=== PATIENT | female | born 1975 | race Caucasian/White ===

== ENCOUNTER → 2016-11-28 | Day surgery (SDC) | payer OTHER ==
[~2016-11-28] VITALS: Ht 160 cm; Wt 87.1 kg
[~2016-11-28] MED LIST: ALBU17IN INH; AMPICILLIN SOD/SULBACTAM SOD 3 GM in D5W MINI-BAG PLUS 100 ML IV ONE; BUPIVACAINE HCL 0.25% 30 ML VIAL As Ordered ONE; BUPIVACAINE HCL 0.25% 30 ML VIAL XX ONE; CELE40TA PO; CYMB60CA3 PO; DRIS50002 PO; FOLI1TAB2 PO; GLYCOPYRROLATE INJ 0.2 MG/ML 2 ML VIAL As Ordered ONE; KETOROLAC 30 MG/ML VIAL (J1885) As Ordered ONE; KETOROLAC 30 MG/ML VIAL (J1885) IV SCH; KETOROLAC 60 MG/2 ML VIAL (J1885) As Ordered ONE; LIDOCAINE 1% SDV INJ 30 ML VIAL As Ordered ONE; LIDOCAINE 1% SDV INJ 30 ML VIAL XX ONE; LIDOCAINE 2% INJ 100 MG/5 ML SDV (FOR ANES.) As Ordered ONE; LR 1,000 ML IV SCH; METOCLOPRAMIDE INJ 10MG/2ML VIAL (J2765) IV PRN; MIDAZOLAM INJ 2 MG/2 ML VIAL (J2250) As Ordered ONE; MULTTAB35 PO; NEOSTIGMINE 1MG/ML 5 ML SYRINGE (J2710) As Ordered ONE; NORC5TAB PO; NORCO, ANEXSIA 5/325MG TABLET (HYDROcodone/ACETAMINOPHEN) PO PRN; OMEP40CA2 PO; ONDANSETRON 4MG/2ML VIAL (J2405) As Ordered ONE; ONDANSETRON 4MG/2ML VIAL (J2405) IV PRN; PERCOCET 5MG/325MG TAB PO PRN; PREV30CA11 PO; PROPOFOL 200 MG/20 ML VIAL As Ordered ONE; PROZ20CA11 PO; ROCURONIUM BROMIDE 50 MG/5 ML VIAL As Ordered ONE; TRAZ50TA4 PO; VITA100T60 PO; ZYRT10CA PO; dexameTHASONE 4 MG/ML 1ML VIAL (J1100) As Ordered ONE; fentaNYL 100 MCG/2 ML INJECTION (J3010) IV PRN; fentaNYL 250 MCG/5 ML INJECTION (J3010) As Ordered ONE
[2016-11-28 06:41] LABS: CONTROL LINE UCG INT CTR LINE PRESENT
[2016-11-28 11:30] VITALS: BP 138/86
--- NOTE | 2016-11-28 11:38 | RO ---
DATE OF PROCEDURE: 11/28/2016 PREOPERATIVE DIAGNOSIS: Symptomatic cholelithiasis. POSTOPERATIVE DIAGNOSES: 1. Symptomatic cholelithiasis. 2. Chronic cholecystitis. PROCEDURE: Laparoscopic cholecystectomy. SURGEON: Dr. Briceño MANAGER INTERNSHIP: Dr. Hillman ANESTHESIA: General anesthesia. ESTIMATED BLOOD LOSS: Less than 25 mL. COMPLICATIONS: None. REMARKS: The patient tolerated the procedure well. NOTE: Dr. Hillman helped with retraction and identification of the cystic duct and artery to help facilitate the surgery. Ms. Serna is a 41-year-old female who was sent to my office with complaints of intermittent epigastric and right upper quadrant pain and was found to have evidence for cholelithiasis, as well as thickened gallbladder wall consistent with biliary colic type symptoms from the stones. She was consulted for a laparoscopic cholecystectomy and after discussion of full risks and benefits, the patient has consented. She received 3 grams of Unasyn preoperatively for prophylaxis. She was brought to the operating room, placed on table. General endotracheal anesthesia was started without any complication. Her abdomen was prepped and draped in the usual sterile fashion. SCDs used for deep vein thrombosis (DVT) prophylaxis. Surgical time-out was performed. We began our surgery. We made an incision on the top of the umbilicus and deepened to the anterior fascia. Veress needle inserted in a controlled fashion. Intra-abdominal placement confirmed with saline drop technique. CO2 insufflation started a pressure of 15 mmHg. Using the same incision, an 11 mm Visiport was placed under direct laparoscopic vision. The insertion site was inspected for injury and none was noted. She was then placed in a reverse Trendelenburg position. Her right side tilted up to further expose the gallbladder. With our position on top of the umbilicus, the liver is situated way up underneath the subcostal area. The fundus of the gallbladder was visualized. This was greatly distended, mildly thickened wall, though no acute inflammation. A good amount of adhesions from the omentum and the hepatoduodenal ligament covers most of the underside of the gallbladder. Three 5 mm ports were placed at the epigastric area, right midclavicular line, and right anterior axillary line under direct vision. The fundus of the gallbladder was grasped. We walked down the grasper to the midbody to be able to raise the gallbladder, which was greatly enlarged and distended. As we were doing this, we dissected free the underside of gallbladder from the chronic attachments of the omentum and the hepatoduodenal ligament, freeing this up and exposing further the gallbladder. We also opened up the peritoneum at the midbody, both anteriorly and posteriorly to enable us to manipulate the gallbladder further. We continued dissecting the gallbladder free until we reached the infundibulum and it sweeps upwards back towards the liver with blunt dissection using Maryland instrument. The cystic duct was identified and this was circumferentially dissected with blunt dissection. The cystic artery is intimately adhered to the posterior side of the duct. This was dissected free circumferentially and followed up antegradely to the neck of the gallbladder where we divided this under control of four hemoclips. We were then able to continue dissecting the gallbladder posteriorly and freeing up the anterior wall away from the liver fully exposing the tract of the cystic duct from the neck of the gallbladder to about 5 to 6 centimeters. The cystic duct itself appears mildly enlarged. Palpating at the neck reveals small stones. No be big stones noted and no stones were palpated at the duct. I initially placed three clips at the cystic duct and two at the gallbladder due to the size of the cystic duct and placed a fourth clip after partially dividing the duct to make sure we had secure closure of the cystic duct stump. After this, the full duct was divided and we worked on freeing the rest of the gallbladder from the liver bed, which we removed intact. There is a small amount of spillage from the tip of the cystic duct. There was only minimal oozing at some points of the liver bed, easily controlled with the cautery. It was placed in an EndoCatch bag and easily retrieved through the umbilical port site. On reinsufflation, the small amount of blood was suctioned and bile leakage was so suctioned off. We irrigated until we had a clear return. We visualized the clips on both the duct and the artery and was satisfied with the placement. There was no clear oozing at the liver bed. With this, we deflated the abdomen. All ports were removed. The umbilical fascial defect repaired with #0 Vicryl in a mattress fashion. All skin incisions closed with #4-0 Monocryl in subcuticular fashion. Steri-Strips and gauze dressings then placed. The patient was promptly awakened, extubated, brought to recovery room stable.
== END ==
LOC: M SDC 05:59
PROVIDERS: ATTEND Surgery
DX: K80.10 Calculus of gallbladder with chronic cholecystitis without obstruction (principal); J45.909 Unspecified asthma, uncomplicated; F32.9 Major depressive disorder, single episode, unspecified; F41.9 Anxiety disorder, unspecified; E66.9 Obesity, unspecified; Z87.891 Personal history of nicotine dependence; Z79.899 Other long term (current) drug therapy

== ENCOUNTER → 2017-02-06 | Outpatient (CLI) | payer OTHER ==
[~2017-02-06] MED LIST changes: -AMPICILLIN SOD/SULBACTAM SOD 3 GM in D5W MINI-BAG PLUS 100 ML IV ONE; -BUPIVACAINE HCL 0.25% 30 ML VIAL As Ordered ONE; -BUPIVACAINE HCL 0.25% 30 ML VIAL XX ONE; -GLYCOPYRROLATE INJ 0.2 MG/ML 2 ML VIAL As Ordered ONE; -KETOROLAC 30 MG/ML VIAL (J1885) As Ordered ONE; -KETOROLAC 30 MG/ML VIAL (J1885) IV SCH; -KETOROLAC 60 MG/2 ML VIAL (J1885) As Ordered ONE; -LIDOCAINE 1% SDV INJ 30 ML VIAL As Ordered ONE; -LIDOCAINE 1% SDV INJ 30 ML VIAL XX ONE; -LIDOCAINE 2% INJ 100 MG/5 ML SDV (FOR ANES.) As Ordered ONE; -LR 1,000 ML IV SCH; -METOCLOPRAMIDE INJ 10MG/2ML VIAL (J2765) IV PRN; -MIDAZOLAM INJ 2 MG/2 ML VIAL (J2250) As Ordered ONE; -NEOSTIGMINE 1MG/ML 5 ML SYRINGE (J2710) As Ordered ONE; -NORCO, ANEXSIA 5/325MG TABLET (HYDROcodone/ACETAMINOPHEN) PO PRN; -ONDANSETRON 4MG/2ML VIAL (J2405) As Ordered ONE; -ONDANSETRON 4MG/2ML VIAL (J2405) IV PRN; -PERCOCET 5MG/325MG TAB PO PRN; -PROPOFOL 200 MG/20 ML VIAL As Ordered ONE; -ROCURONIUM BROMIDE 50 MG/5 ML VIAL As Ordered ONE; -dexameTHASONE 4 MG/ML 1ML VIAL (J1100) As Ordered ONE; -fentaNYL 100 MCG/2 ML INJECTION (J3010) IV PRN; -fentaNYL 250 MCG/5 ML INJECTION (J3010) As Ordered ONE
--- NOTE | 2017-02-06 15:44 | REP ---
Distal lesion abdominal right upper quadrant ultrasound: Comparison is 2015. The patient has had an interim cholecystectomy. There is no identifiable gallbladder compatible with the history of cholecystectomy. There are two cysts in the left lobe of the liver. Today the larger cyst maximally measures 2.2 cm and the smaller cyst 0.9 cm. Previously the larger cyst measured 2.1 cm. Smaller cyst 1.8 cm. The hepatic parenchyma is otherwise homogeneous and unremarkable. There is no biliary duct dilation. The common duct is 3.9 mm in diameter. The pancreas is obscured by bowel. There is no right renal hydronephrosis, calculus, mass or cyst. The right kidney is normal size measuring 11.6 cm length. Impression: Gallbladder surgically absent. There are two small cysts in the left lobe of the liver, similar to the prior study. Pancreas is obscured by bowel. Otherwise, negative abdominal right upper quadrant ultrasound. Signed by Noble Falcon MD 02/06/2017 03:35 P
== END ==
LOC: M LRY 14:34
PROVIDERS: ATTEND Family Medicine
DX: R10.13 Epigastric pain (principal)

== ENCOUNTER → 2017-02-06 | Outpatient (REF) | payer OTHER ==
[2017-02-06 17:56] LABS: ALBUMIN 3.8 GM/DL (3.2-5.2); ALBUMIN/GLOBULIN RATIO 1.27 (1.00-1.93); ALKALINE PHOSPHATASE 70 U/L (45-117); ALT/SGPT 18 U/L (12-78); AMYLASE 42 U/L (25-115); ANION GAP 9 MEQ/L (8-16); AST/SGOT 14 U/L (15-37); BLOOD UREA NITROGEN 12 MG/DL (7-18); CALCIUM LEVEL 8.9 MG/DL (8.5-10.1); CARBON DIOXIDE LEVEL 27 MEQ/L (21-32); CHLORIDE LEVEL 107 MEQ/L (98-107); GLOMERULAR FILTRATION RATE > 60.0 (>58); GLUCOSE, FASTING 91 MG/DL (70-105); POTASSIUM SERUM 4.5 MEQ/L (3.5-5.1); SODIUM LEVEL 143 MEQ/L (136-145); TOTAL PROTEIN 6.8 GM/DL (6.4-8.2)
[2017-02-06 18:30] LABS: MEAN CORPUSCULAR HEMOGLOBIN 24.9 pg (27.0-33.0); MEAN CORPUSCULAR HGB CONC 31.8 g/dl (32.0-36.5); MEAN CORPUSCULAR VOLUME 78.2 fl (80.0-96.0); RED CELL DISTRIBUTION WIDTH 15.6 % (11.5-14.5); WHITE BLOOD COUNT 12.9 K/mm3 (4.0-10.0)
== END ==
LOC: M SFHCLERA 14:31
PROVIDERS: ATTEND Family Medicine
DX: R10.13 Epigastric pain (principal)

== ENCOUNTER → 2017-02-07 | Outpatient (REF) | payer OTHER | LOC: M SFHCLERA 16:28 | PROVIDERS: ATTEND Family Medicine | DX: R10.13 Epigastric pain (principal) ==

== ENCOUNTER → 2017-03-22 | Outpatient (REF) | payer OTHER ==
[~2017-03-22] MED LIST changes: +NORC1TAB4 PO; -NORC5TAB PO
== END ==
LOC: M SFHCWAGY 13:40
PROVIDERS: ATTEND Nurse Practitioner Women's Health
DX: R87.612 Low grade squamous intraepithelial lesion on cytologic smear of cervix (LGSIL) (principal)

== ENCOUNTER → 2017-03-22 | Outpatient (CLI) | payer OTHER ==
--- NOTE | 2017-03-22 14:25 | REPMRS ---
Patient History The patient states she had a clinical breast exam in 03/12 Family history of breast cancer in paternal grandmother at age 50 or over and colorectal cancer in maternal grandmother. Benign excisional biopsy of the left breast, 2003. Taking hormonal contraceptives for 7 months. Digital Woman Screen Mammo: March 22, 2017 - Exam #: [id number] Bilateral CC and MLO view(s) were taken. Technologist: Ana Pratt, Technologist Prior study comparison: August 27, 2015, digital woman screen mammo performed at [facility] [facility]. December 23, 2013, digital woman screen mammo performed at [facility]. FINDINGS: There are scattered fibroglandular densities. There has been no change in the appearance of the mammogram from the prior studies. There is a mild amount of residual fibroglandular tissue which is fairly symmetric. There is no interval development of dominant mass, architectural distortion, or clustered microcalcification suggestive of malignancy. ASSESSMENT: BI-RADS/ACR category 1 mammogram. Negative. Recommendation Routine screening mammogram in 1 year (for women over age 40). This mammogram was interpreted with the aid of an FDA-approved computer-aided dectection system. Electronically Signed By: Noble Cummins MD 03/22/17 0656
== END ==
LOC: M WHC 13:25
PROVIDERS: ATTEND Nurse Practitioner Women's Health
DX: Z12.31 Encounter for screening mammogram for malignant neoplasm of breast (principal); Z80.3 Family history of malignant neoplasm of breast

== ENCOUNTER → 2017-04-09 | Outpatient (REF) | payer OTHER | LOC: M SFHCWAGY 14:49 | PROVIDERS: ATTEND Nurse Practitioner Women's Health | DX: R87.612 Low grade squamous intraepithelial lesion on cytologic smear of cervix (LGSIL) (principal); R87.810 Cervical high risk human papillomavirus (HPV) DNA test positive ==

== ENCOUNTER → 2017-06-22 | Outpatient (REF) | payer OTHER ==
[~2017-06-22] MED LIST changes: -FOLI1TAB2 PO; +FOLI1TAB4 PO; +PREV1CAP PO; -PREV30CA11 PO; +TRAZ50TA11 PO; -TRAZ50TA4 PO
== END ==
LOC: M SFHCLERA 18:10
PROVIDERS: ATTEND Nurse Practitioner Family
DX: R35.0 Frequency of micturition (principal)

== ENCOUNTER → 2017-09-03 | Outpatient (REF) | payer BC | LOC: M SFHCLERA 11:59 | PROVIDERS: ATTEND Nurse Practitioner Family | DX: J02.9 Acute pharyngitis, unspecified (principal) ==

== ENCOUNTER → 2017-09-18 | Outpatient (CLI) | payer BC ==
--- NOTE | 2017-09-19 13:32 | REP ---
Pelvic ultrasound including transabdominal and endovaginal ultrasound assessment: According to the technologist, during the scanning of the pelvis of the patients pain is located over the bladder in the midline. The uterus is anteverted and normal size measuring 9.0 x 4.8-5.8 cm. The endometrium is not thickened measuring 5.6 cm. The ovaries are normal size. The right ovary measures 5.1 x 2.4 x 2.7 cm. Left ovary measures 3.9 x 2.2 x 2.0 cm. There is a 2 cm simple cyst in the right ovary. There is no dominant mass or cyst in the left ovary. The the patient has an IUD. The IUD can be seen centrally placed within the endometrial canal. There is no free fluid in the pelvis. Impression: There is a 2 cm simple cyst in the right ovary. There are is an IUD centrally placed in the endometrial canal. No free fluid. Otherwise, negative pelvic ultrasound.
== END ==
LOC: M WHC 12:48
PROVIDERS: ATTEND Nurse Practitioner Women's Health
DX: R10.2 Pelvic and perineal pain (principal); Z30.431 Encounter for routine checking of intrauterine contraceptive device; N83.201 Unspecified ovarian cyst, right side

== ENCOUNTER → 2018-02-14 | Outpatient (CLI) | payer BC | LOC: M WHC 10:40 | DX: D25.9 Leiomyoma of uterus, unspecified (principal) | CPT/HCPCS: 76830 ==

== ENCOUNTER → 2018-03-26 | Outpatient (CLI) | payer BC | LOC: M WHC 13:28 | DX: Z12.31 Encounter for screening mammogram for malignant neoplasm of breast (principal) | CPT/HCPCS: 77067 ==

== ENCOUNTER → 2018-03-26 | Outpatient (REF) | payer BC ==
[2018-03-29 00:07] LABS: HPV HYBRID CAPTURE II Positive (Negative)
== END ==
LOC: M SFHCWAGY 13:35
DX: Z12.4 Encounter for screening for malignant neoplasm of cervix (principal)
CPT/HCPCS: G0123

== ENCOUNTER → 2018-04-08 | Outpatient (REF) | payer BC | LOC: M SFHCWAGY 15:28 | DX: R87.810 Cervical high risk human papillomavirus (HPV) DNA test positive (principal); R87.610 Atypical squamous cells of undetermined significance on cytologic smear of cervix (ASC-US) ==

== ENCOUNTER → 2018-08-29 | Outpatient (REF) | payer OTHER ==
[2018-08-29 12:10] LABS: ANION GAP 8 MEQ/L (8-16); BLOOD UREA NITROGEN 12 MG/DL (7-18); CALCIUM LEVEL 9.5 MG/DL (8.5-10.1); CARBON DIOXIDE LEVEL 26 MEQ/L (21-32); CHLORIDE LEVEL 105 MEQ/L (98-107); CHOLESTEROL LEVEL 219 MG/DL (<200); CHOLESTEROL RISK RATIO 3.318 (<5); CREATININE FOR GFR 0.69 MG/DL (0.55-1.30); GLOMERULAR FILTRATION RATE > 60.0 (>58); GLUCOSE, FASTING 98 MG/DL (70-100); HDL CHOLESTEROL 66 MG/DL (>40); LDL CHOLESTEROL 138 MG/DL (<100); NON-HDL-C 153 MG/DL; POTASSIUM SERUM 4.2 MEQ/L (3.5-5.1); SODIUM LEVEL 139 MEQ/L (136-145); TRIGLYCERIDES LEVEL 73 MG/DL (<150)
== END ==
LOC: M SFHCLERA 08:34
DX: R73.03 Prediabetes (principal)
CPT/HCPCS: 80061

== ENCOUNTER 2018-09-09 13:42 | Emergency (ER) | payer OTHER | END 2018-09-09 17:22 | disposition home or self-care (01) | LOC: M ED 13:42 | DX: H66.93 Otitis media, unspecified, bilateral (principal); J45.909 Unspecified asthma, uncomplicated; K21.9 Gastro-esophageal reflux disease without esophagitis; F33.9 Major depressive disorder, recurrent, unspecified; F41.9 Anxiety disorder, unspecified; Z79.899 Other long term (current) drug therapy | CPT/HCPCS: 99283 ==

== ENCOUNTER → 2018-11-07 | Outpatient (REF) | payer OTHER | LOC: M SFHCLERA 15:40 | DX: J02.9 Acute pharyngitis, unspecified (principal) ==

== ENCOUNTER → 2018-11-29 | Outpatient (REF) | payer OTHER ==
[~2018-11-29] MED LIST changes: +AUGM875T28 PO; -DRIS50002 PO; +DRIS50003 PO; +FOLI1TAB11 PO; -FOLI1TAB4 PO; +TRAZ-160 PO; -TRAZ50TA11 PO
== END ==
LOC: M SFHCLERA 09:29
PROVIDERS: ATTEND Nurse Practitioner Family
DX: R19.7 Diarrhea, unspecified (principal)

== ENCOUNTER → 2019-01-28 | Outpatient (CLI) | payer OTHER ==
--- NOTE | 2019-01-28 09:22 | REP ---
MAXILLOFACIAL CT STUDY WITHOUT CONTRAST: HISTORY: Chronic maxillary sinusitis. No comparison imaging. CT FINDINGS: Preliminary digital nurse midwife/clinical instructor radiographs are unremarkable. Frontal sinuses are clear. Ethmoid and sphenoid sinuses are clear. There are mild mucosal changes in the inferior aspect of the maxillary sinuses right more so than left. Ostiomeatal complexes are patent. There is a Tito cell on the left. Bony nasal septum is in the midline. Nasal turbinate soft tissues are unremarkable. No intraorbital abnormality is seen. The visualized intracranial structures are unremarkable. IMPRESSION: Minimal mucosal changes in the maxillary sinuses bilaterally, right more so than left. Otherwise negative. Electronically Signed by Brooks Ward MD 01/28/2019 11:08 A
== END ==
LOC: M RAD 08:00
PROVIDERS: ATTEND Otolaryngology
DX: J32.0 Chronic maxillary sinusitis (principal)

== ENCOUNTER → 2019-02-06 | Outpatient (REF) | payer OTHER ==
[2019-02-06 13:01] LABS: BASO % 0.4 % (0.0-1.0); EOS # 0.1 10^3/uL (0.0-0.50); EOS % 1.8 % (0.0-3.0); HEMATOCRIT 40.6 % (36.0-47.0); HEMOGLOBIN 13.3 g/dl (12.0-15.5); LYMPH # 1.4 10^3/uL (1.5-4.5); LYMPH % 20.8 % (24.0-44.0); MEAN CORPUSCULAR HEMOGLOBIN 27.1 pg (27.0-33.0); MEAN CORPUSCULAR HGB CONC 32.8 g/dl (32.0-36.5); MEAN CORPUSCULAR VOLUME 82.7 fl (80.0-96.0); MONO # 1.1 10^3/uL (0.0-0.8); MONO % 15.9 % (0.0-5.0); NEUTROPHILS # 4.1 10^3/uL (1.8-7.7); PLATELET COUNT, AUTOMATED 319 10^3/uL (150-450); RED BLOOD COUNT 4.91 10^6/uL (4.00-5.40); WHITE BLOOD COUNT 6.7 10^3/uL (4.0-10.0)
[2019-02-06 13:13] LABS: FREE T4 1.18 NG/DL (0.76-1.46); THYROID STIMULATING HORMONE 1.48 uIU/ML (0.358-3.740)
== END ==
LOC: M SFHCLERA 09:04
PROVIDERS: ATTEND Family Medicine
DX: R00.2 Palpitations (principal)

== ENCOUNTER → 2019-02-25 | Outpatient (CLI) | payer OTHER ==
--- NOTE | 2019-02-25 21:27 | ECHO ---
DATE OF PROCEDURE: 02/25/2019 REFERRING PHYSICIAN: Dr. Alexia Courtney INDICATION: Palpitations. HEIGHT: 160 cm WEIGHT: 85.3 kg 2D MEASUREMENTS: Aortic root: 4.0 cm Left atrium: 3.7 cm Ventricular septum: 1.08 cm Posterior wall: 0.79 cm Left ventricle diastole: 4.4 cm Proximal ascending aorta: 3.8 cm Aortic annulus: 2.3 cm Left atrial volume index: 30 Inferior vena cava: 2.4 cm DOPPLER MEASUREMENTS: Aortic valve velocity: 102 cm/s Very mild mitral regurgitation, within normal limits. Mitral E velocity: 85.9 cm/s Mitral A velocity: 95.6 cm/s Mitral deceleration time: 232 ms Mild tricuspid regurgitation. Estimated right ventricle systolic pressure: 26-31 mmHg assuming a pressure of 5-10 mmHg. Very mild pulmonic regurgitation. Pulmonary artery systolic pressure: 22 mmHg. MITRAL ANNULAR TISSUE DOPPLER: E prime septal: 7.4 cm/s E prime lateral: 8.6 cm/s DESCRIPTION: Rhythm was sinus rhythm and sinus bradycardia. No pericardial effusion. Image quality was adequate. This was a 2D, M-mode, color flow Doppler and pulse wave Doppler examination and included mitral annular tissue Doppler. CONCLUSIONS: 1. Normal left ventricle internal dimensions and wall thickness. Normal regional left ventricular (LV) wall motion and wall thickening. Normal LV systolic function. Left ventricular ejection fraction (LVEF) 60% by visual estimate. Grade 1 LV diastolic dysfunction. 2. Mild dilatation of the aortic root at both the level of the sinuses of Valsalva and proximal ascending aorta. 3. Mild left atrial dilatation by left atrial volume index. 4. Otherwise normal appearing echocardiogram Doppler findings.
== END ==
LOC: M CARPUL 08:21
PROVIDERS: ATTEND Family Medicine
DX: R00.2 Palpitations (principal)

== ENCOUNTER → 2019-05-01 | Outpatient (REF) | payer OTHER ==
[~2019-05-01] MED LIST changes: -NORC1TAB4 PO; +NORC1TAB7 PO; -TRAZ-160 PO; +TRAZ-252 PO
== END ==
LOC: M LAB REF 13:42
PROVIDERS: ATTEND Obstetrics & Gynecology
DX: N92.1 Excessive and frequent menstruation with irregular cycle (principal)

== ENCOUNTER 2019-06-16 05:54 | Day surgery (SDC) | payer OTHER ==
[~2019-06-16] VITALS: Ht 160 cm; Wt 80.7 kg
[~2019-06-16 05:54] MED LIST changes: +ALL10TAB28 PO; +IBUP-1114 PO; +OMEP-218 PO; +PROAAER10 INH
[2019-06-16] MEDS ORDERED: LR 1,000 ML IV ONE (06:00)
[2019-06-16 06:36] LABS: HEMATOCRIT 39.6 % (36.0-47.0); MEAN CORPUSCULAR HEMOGLOBIN 28.3 pg (27.0-33.0); MEAN CORPUSCULAR HGB CONC 32.8 g/dl (32.0-36.5); MEAN CORPUSCULAR VOLUME 86.1 fl (80.0-96.0); PLATELET COUNT, AUTOMATED 340 10^3/uL (150-450); WHITE BLOOD COUNT 9.4 10^3/uL (4.0-10.0)
[2019-06-16 06:42] LABS: URINE PREG TEST NEGATIVE (NEGATIVE)
[2019-06-16] MEDS ORDERED: METHYLENE BLUE 0.5% (5MG/ML) 10 ML AMP (PROVAYBLUE)(Q9968 PER 1MG) As Ordered ONE ×2 (07:10→07:11)
[2019-06-16] MEDS ORDERED: BUPIVACAINE HCL 0.25% 30 ML VIAL As Ordered ONE (07:10)
[2019-06-16] MEDS ORDERED: dexameTHASONE 4 MG/ML 1ML VIAL (J1100) As Ordered ONE (07:52)
[2019-06-16] MEDS ORDERED: PROPOFOL 200 MG/20 ML VIAL As Ordered ONE (07:52)
[2019-06-16] MEDS ORDERED: MIDAZOLAM INJ 2 MG/2 ML VIAL (J2250) As Ordered ONE (07:52)
[2019-06-16] MEDS ORDERED: HYDROmorphone HCL 2 MG/ML 1ML VIAL (J1170) As Ordered ONE (07:52)
[2019-06-16] MEDS ORDERED: fentaNYL 100 MCG/2 ML INJECTION (J3010) As Ordered ONE ×2 (07:52→10:44)
[2019-06-16] MEDS ORDERED: ROCURONIUM BROMIDE 50 MG/5 ML VIAL As Ordered ONE ×2 (07:52→08:08)
[2019-06-16] MEDS ORDERED: LIDOCAINE 2% INJ 100 MG/5 ML SDV (FOR ANES.) As Ordered ONE (07:52)
[2019-06-16] MEDS ORDERED: DESFLURANE 240 ML INHALANT As Ordered ONE (07:52)
[2019-06-16] MEDS ORDERED: ONDANSETRON 4MG/2ML VIAL (J2405) As Ordered ONE (09:21)
[2019-06-16] MEDS ORDERED: SUGAMMADEX SODIUM 500 MG/5 ML VIAL (BRIDION) As Ordered ONE (09:21)
[2019-06-16] MEDS ORDERED: KETOROLAC 60 MG/2 ML VIAL (J1885) As Ordered ONE (09:21)
[2019-06-16] MEDS: fentaNYL 100 MCG/2 ML INJECTION (J3010) IV PRN ×3 (10:46→10:59)
[2019-06-16] MEDS ORDERED: LR 1,000 ML IV SCH ×2 (11:00→11:15)
[2019-06-16] MEDS ORDERED: oxyCODONE 5MG TAB PO PRN (11:00)
[2019-06-16] MEDS ORDERED: PROMETHAZINE INJ 25 MG/ML VIAL (J2550) IV PRN ×2 (11:00→11:15)
[2019-06-16] MEDS ORDERED: METOCLOPRAMIDE INJ 10MG/2ML VIAL (J2765) IV PRN (11:00)
[2019-06-16] MEDS ORDERED: OXYC1TAB23 PO (11:09)
[2019-06-16] MEDS ORDERED: PERCOCET 5MG/325MG TAB PO PRN ×2 (11:15)
[2019-06-16] MEDS ORDERED: MORPHINE 4 MG/ML 1ML VIAL/SYRINGE (J2270) IV PRN (11:15)
[2019-06-16 12:36] VITALS: BP 93/51
[2019-06-16 13:03] VITALS: BP 103/58
[2019-06-16 14:08] VITALS: BP 104/59
[2019-06-16 15:05] VITALS: BP 109/57
[2019-06-16] MEDS ORDERED: KETOROLAC 30 MG/ML VIAL (J1885) IV SCH (16:00)
[2019-06-16 16:17] VITALS: BP 106/65
[2019-06-16 17:00] VITALS: BP 93/52
--- NOTE | 2019-06-17 13:21 | RO ---
DATE OF OPERATION: 06/17/2019 PREOPERATIVE DIAGNOSES: 1. Abnormal uterine bleeding. 2. Fibroid uterus. POSTOPERATIVE DIAGNOSES: 1. Abnormal uterine bleeding. 2. Fibroid uterus. PROCEDURES PERFORMED: 1. robotic-assisted laparoscopic hysterectomy. 2. Bilateral salpingectomy. 3. Right oophorectomy. 4. Cystoscopy. SURGEON: Vicki Gomez MD HEAT AND FROST INSULATOR HELPER: FIGUEROA Lyles ANESTHESIA: General endotracheal anesthesia. ESTIMATED BLOOD LOSS: 250 mL. IV FLUIDS: 1500 of Lactated Ringer's solution. URINE OUTPUT: 300 mL. PREOPERATIVE ANTIBIOTICS: 2 grams of Ancef. INFECTION CLASSIFICATION: 2 SPECIMENS: Cervix, uterus, bilateral fallopian tubes and right ovary. OPERATIVE FINDINGS: Patient with a large fibroid uterus, right adnexa adhered to uterine fibroid. Cystoscopic findings revealed normal bladder mucosa, bilateral ureteral jets were observed. No foreign bodies or objects observed. DESCRIPTION OF OPERATION: After informed consent was obtained and written consent was reviewed, the patient was brought to the operating room where she was placed under general endotracheal anesthesia. She was then placed in lithotomy position, was prepped and draped in a normal sterile fashion. A time out in the operating room was performed identifying the patient, procedure be performed as well as drug allergies. A speculum was placed revealing the cervix, anterior and posterior aspects of the cervix was stitched with #0 Vicryl. A medium VCare uterine manipulator was then advanced through cervical os, insufflated with 7 mL of air, the cervical cap as well as vaginal sleeve was advanced down into the vagina. Instruments were then removed from the patient's vagina. Root catheter was placed and set to gravity. Gloves were changed and attention was turned to the patient's abdomen where a Veress needle was placed in the umbilicus, a pneumoperitoneum was obtained with CO2 gas. Next, the supraumbilical area was infused with 0.25% Marcaine. This area was incised, an 8 mm trocar and sleeve was advanced through this incision. The laparoscope was then replaced revealing intra-abdominal placement. Four additional port sites were placed, two to each side of the umbilicus. Each one of these areas was infused with 0.25% Marcaine. Incisions were made in each one of these, and 8 mm trocar and sleeves was advanced through each one of these incisions under direct visualization. Next, the da Angelita was then docked, utilizing the camera arm and three operative arms. Next attention was turned to the patient's right adnexa. I attempted to dissect the right ovary from the right fibroid. There was excessive amounts of bleeding coming from the right infundibulopelvic ligament at which time I made a decision to proceed with right oophorectomy for hemostasis. The right infundibulopelvic ligamentwas cauterized and ligated with excellent hemostasis noted at that point. The left uterine ovarian ligament was cauterized using the Vessel Sealer with good hemostasis noted. The round ligaments bilaterally were cauterized and ligated with good hemostasis noted. The anterior lip of the broad ligaments were dissected along the bladder creating a bladder flap. The remainder of the broad and cardinal ligaments were then cauterized and ligated with good hemostasis noted. The uterine vessels were skeletonized bilaterally and cauterized and ligated. Next, utilizing monopolar scissors anterior and posterior colpotomies were made. The uterus was then detached. The da Angelita was then undocked. I then proceeded with morcellation of the uterus, in which case it was removed vaginally. The da Angelita was re-docked and surgical sites were inspected and noted be hemostatic. The vaginal cuff was then closed using #0 V-Loc system in a running nonlocking fashion. Surgical sites irrigated. Emma was applied over the surgical field. Da Angelita was then undocked, Root catheter was removed. A cystoscopy was performed. Cystoscope was advanced transurethrally through the bladder. Cystoscope was performed showing normal bladder mucosa with no foreign objects. Bilateral ureteral jets were observed. The cystoscope was then removed. The bladder was drained. Attention was then turned to the patient's abdomen. All five port sites were closed with #4-0 Monocryl and dressed with DERMABOND. The patient was then taken out of lithotomy position and was taken to recovery in stable condition. Anca Chou, my cardiovascular surgical tech, played an essential role during the surgery. She assisted with port placement, manipulation of the uterus, as well as removal of the specimen and port closure. [place]
== END 2019-06-16 19:05 | disposition home or self-care (01) ==
LOC: M SDC 05:54 → M OBS 12:18 → M SDC 19:05
PROVIDERS: ATTEND Obstetrics & Gynecology
DX: N92.6 Irregular menstruation, unspecified (principal); D25.9 Leiomyoma of uterus, unspecified; K21.9 Gastro-esophageal reflux disease without esophagitis; F41.9 Anxiety disorder, unspecified; F32.9 Major depressive disorder, single episode, unspecified
CPT/HCPCS: 36415; 58571; 84703; 85027; 86850; 86900; 86901; 88307; J0690; J1100; J1170; J1885; J2250; J2405; J2765; J3010; Q9968

== ENCOUNTER → 2020-07-20 | Outpatient (CLI) | payer OTHER ==
[~2020-07-20] MED LIST changes: -ALL10TAB28 PO; +CETI-24 PO; -OMEP40CA2 PO; +OMEP40CA97 PO; +OXYC1TAB23 PO
--- NOTE | 2020-07-22 07:46 | REPMRS ---
Patient History The patient states she had a clinical breast exam in June 2020. Family history of breast cancer at age 50 or over in paternal grandmother, colorectal cancer in maternal grandmother. Benign excisional biopsy of the left breast, 2004. Took hormonal contraceptives for 1 year 7 months. Digital Woman Screen Mammo: July 20, 2020 - Exam #: [id number] Bilateral CC and MLO view(s) were taken. Technologist: Charu Genao, Technologist Prior study comparison: March 26, 2018, digital woman screen mammo performed at [facility]. March 22, 2017, digital woman screen mammo performed at [facility]. August 27, 2015, digital woman screen mammo performed at [facility]. FINDINGS: There are scattered fibroglandular densities. The Volpara volumetric breast density category is:B. There is a 6 mm neodensity in the lateral retroareolar regoin of the right breast, seen only on the CC view. This merits further evaluation. There has been no change in the appearance of the mammogram from the prior studies. There is a mild amount of scattered fibroglandular density which is fairly symmetric. There is no interval development of dominant mass, architectural distortion, or grouped microcalcification suggestive of malignancy. 3-D tomosynthesis shows no additional findings. Assessment: BI-RADS/ACR category 0 mammogram, Incomplete: Need additional imaging evaluation and/or prior mammograms for comparison. Recommendation Ultrasound and special view mammogram of the right breast. This patient's Lifetime Breast Cancer Risk is estimated at 13.4 %. This mammogram was interpreted with the aid of an FDA-approved computer-aided dectection system. Electronically Signed By: Yuri Ward MD 07/22/20 0745
== END ==
LOC: M WHC 14:46
PROVIDERS: ATTEND Nurse Practitioner Women's Health
DX: Z12.31 Encounter for screening mammogram for malignant neoplasm of breast (principal)

== ENCOUNTER → 2020-07-30 | Outpatient (CLI) | payer OTHER ==
--- NOTE | 2020-08-25 10:03 | REP ---
DIAGNOSTIC MAMMOGRAM RIGHT BREAST Multiple spot compression views of the right breast are performed in addition to right ML tomographic sequence, in order to evaluate a possible anterior nodular density in the right breast on the 07/20/2020 screening mammogram. This was 6 mm in diameter near the nipple and slightly laterally located. The nodular density compresses out to an unchanged appearance compared to other prior studies, including 03/26/2018 and other prior exams. No persistent nodule is seen. The findings are benign. IMPRESSION: ACR 1 negative. No persistent nodule on todays spot compression views of the right breast. The previously noted 6 mm nodular density anteriorly and laterally as seen on the right CC view is not seen on todays exam and was artifactual. Recommend follow-up mammogram in one year. Patient letter 1. MTDD
== END ==
LOC: M WHC 09:46
PROVIDERS: ATTEND Nurse Practitioner Women's Health
DX: R92.2 Inconclusive mammogram (principal)
CPT/HCPCS: 77065; G0279

== ENCOUNTER → 2020-12-30 | Outpatient (CLI) | payer OTHER ==
[2020-12-30 13:15] LABS: BASO # 0.1 10^3/uL (0.0-0.2); BASO % 0.7 % (0.0-1.0); EOS # 0.1 10^3/uL (0.0-0.5); EOS % 1.6 % (0.0-3.0); HEMOGLOBIN 14.5 g/dl (12.0-15.5); LYMPH # 2.2 10^3/uL (1.5-5.0); LYMPH % 25.4 % (24.0-44.0); MEAN CORPUSCULAR HEMOGLOBIN 29.8 pg (27.0-33.0); MEAN CORPUSCULAR VOLUME 90.3 fl (80.0-96.0); MONO # 0.9 10^3/uL (0.0-0.8); MONO % 10.8 % (0.0-5.0); NEUTROPHILS # 5.2 10^3/uL (1.5-8.5); NEUTROPHILS % 61.1 % (36.0-66.0); PLATELET COUNT, AUTOMATED 322 10^3/uL (150-450); RED BLOOD COUNT 4.87 10^6/uL (4.00-5.40); WHITE BLOOD COUNT 8.5 10^3/uL (4.0-10.0)
[2020-12-30 13:25] LABS: ALT/SGPT 25 U/L (12-78); BILIRUBIN,TOTAL 0.5 MG/DL (0.2-1.0); BLOOD UREA NITROGEN 15 MG/DL (7-18); C REACTIVE PROTEIN QUANTITATIV 0.48 MG/DL (0.00-0.30); CALCIUM LEVEL 10.3 MG/DL (8.5-10.1); CARBON DIOXIDE LEVEL 25 MEQ/L (21-32); CHLORIDE LEVEL 107 MEQ/L (98-107); GLOMERULAR FILTRATION RATE > 60.0 (>58); GLUCOSE, FASTING 101 MG/DL (70-100); POTASSIUM SERUM 4.4 MEQ/L (3.5-5.1); SODIUM LEVEL 139 MEQ/L (136-145); TOTAL PROTEIN 6.9 GM/DL (6.4-8.2)
== END ==
LOC: M WUC 09:30
PROVIDERS: ATTEND Family Medicine
DX: R10.9 Unspecified abdominal pain (principal)

== ENCOUNTER → 2021-01-21 | Outpatient (CLI) | payer OTHER ==
--- NOTE | 2021-01-24 12:32 | ECHO ---
DATE OF PROCEDURE: 01/21/2021 Age: 45 Gender: Female REFERRING PHYSICIAN: Alexia Courtney MD PATIENT LOCATION: Outpatient. REASON FOR STUDY: Aortic root dilatation. 2D MEASUREMENTS: IVS 1.0 cm LV 4.5 cm LVPW 1.0 cm LA 3.7 cm Aorta 4.0 cm DOPPLER MEASUREMENT Peak velocity across the aortic valve 1.1 m/s Peak velocity across the LVOT 0.6 m/s Mitral E 0.85 Mitral A 0.98 with a ratio of 0.9 Maximum tricuspid valve velocity 2.2 m/s 2D COMMENTS: 1. Normal left ventricular size, wall thickness, and normal global left ventricular systolic function. The estimated left ventricular systolic ejection fraction is 60% to 65%. 2. Normal left atrium. Normal right atrium and right ventricle. 3. The atrial septum appeared to be normal without evidence of defect or shunt. 4. Mildly dilated aortic root at 4.0 cm. 5. The aortic valve, mitral valve, tricuspid valve, and pulmonic valve appeared to be normal. The proximal pulmonary artery branches were not well visualized. 6. The inferior vena cava was not well visualized. Doppler detects trace mitral regurgitation and trace tricuspid regurgitation. The calculated pulmonary artery systolic pressure was normal. Abnormal relaxation pattern was noted across the mitral valve leaflets, as well as the mitral valve annulus consistent with features of grade 1 left ventricular diastolic dysfunction. IMPRESSION: 1. Normal global left ventricular systolic function. There are some features of grade 1 left ventricular diastolic dysfunction manifested by abnormal relaxation. 2. Trace mitral regurgitation. 3. Trace tricuspid regurgitation with a normal calculated pulmonary artery systolic pressure. 4. Mildly dilated aortic root at 4.0 cm. No remarkable changes in the size of the aortic root when compared to the echocardiogram done on 02/25/2019. [place]
== END ==
LOC: M CARPUL 09:09
PROVIDERS: ATTEND Family Medicine
DX: I77.810 Thoracic aortic ectasia (principal)

== ENCOUNTER → 2021-02-11 | Outpatient (CLI) | payer OTHER ==
[2021-02-11 13:15] LABS: ALBUMIN 3.9 GM/DL (3.2-5.2)
[2021-02-11 13:29] LABS: TOTAL 25(OH) VITAMIN D 32.1 NG/ML (30.0-100.0)
== END ==
LOC: M WUC 10:09
PROVIDERS: ATTEND Family Medicine
DX: E83.52 Hypercalcemia (principal)

== ENCOUNTER → 2021-11-09 | Outpatient (CLI) | payer OTHER ==
[~2021-11-09] MED LIST changes: -CYMB60CA3 PO; +CYMB60CA4 PO; +OMEP40CA4 PO; -OMEP40CA97 PO
--- NOTE | 2021-11-09 15:30 | REPMRS ---
Patient History The patient states she had a clinical breast exam in October 2021. Family history of breast cancer at age 50 or over in paternal grandmother, colorectal cancer in maternal grandmother. Benign excisional biopsy of the left breast, 2003. Took hormonal contraceptives for 1 year 7 months. Covid vaccines 3-6 months ago both in the patients left arm. Patient states no breast complaints today. Patient has signed MRS History Sheet. Digital Woman Screen Mammo: November 09, 2021 - Exam #: [id number] Bilateral CC and MLO view(s) were taken. Technologist: RT Jennifer Prior study comparison: July 30, 2020, right breast diagnostic unilateral mammo performed at [facility]. July 20, 2020, bilateral digital woman screen mammo performed at [facility]. FINDINGS: There are scattered fibroglandular densities. Screening. Digital screening (2D) mammography was performed bilaterally in the CC and MLO projections. Additionally, breast tomosynthesis (3D mammography) was performed bilaterally in the CC and MLO projections. Todays exam was compared to the prior exam/exams. By history, the patient has no complaints of a palpable breast abnormality or other significant breast complaints. The breasts are unchanged in size and shape. There are no yanick-soft tissue densities or spiculated masses. There is no internal architectural distortion. There are no suspicious yanick-calcific clusters. Skin thickening or nipple retraction is not present. IMPRESSION: BI-RADS Category 2- Benign Findings. There is no evidence of malignant alteration of the breasts. Followup examination recommended in one year. The Volpara volumetric breast density category is B, there are scattered areas of fibroglandular densities. This mammogram was read with the assistance of [facility] [employer],an FDA approved computer aided detection system for mammography. The lifetime Tyrer-Cuzick score is 13.1 % Negative x-ray reports should not delay surgical consultation if a dominant or clinically suspicious mass is present. Not all breast cancers can be identified by mammography. Therefore, we recommend that you continue to perform regular breast self-examination and physical examination and then promptly contact your physician of any concerns or changes. Adenosis and dense breasts may obscure an underlying neoplasm. Assessment: BI-RADS/ACR category 2 mammogram. Benign Findings. Recommendation Routine screening mammogram of both breasts in 1 year. Electronically Signed By: Chris Nair DO 11/09/21 9514
== END ==
LOC: M WHC 13:31
PROVIDERS: ATTEND Obstetrics & Gynecology
DX: Z12.31 Encounter for screening mammogram for malignant neoplasm of breast (principal)

== ENCOUNTER → 2021-12-08 | Outpatient (CLI) | payer OTHER ==
[2021-12-08 16:13] LABS: BASO % 0.6 % (0.0-1.0); EOS # 0.1 10^3/uL (0.0-0.5); EOS % 1.5 % (0.0-3.0); HEMATOCRIT 43.3 % (36.0-47.0); HEMOGLOBIN 14.3 g/dl (12.0-15.5); LYMPH # 1.4 10^3/uL (1.5-5.0); LYMPH % 21.1 % (24.0-44.0); MEAN CORPUSCULAR HEMOGLOBIN 29.7 pg (27.0-33.0); MEAN CORPUSCULAR VOLUME 89.8 fl (80.0-96.0); MONO # 1.4 10^3/uL (0.0-0.8); MONO % 20.6 % (2.0-8.0); NEUTROPHILS # 3.7 10^3/uL (1.5-8.5); NEUTROPHILS % 55.9 % (36.0-66.0); PLATELET COUNT, AUTOMATED 304 10^3/uL (150-450); RED BLOOD COUNT 4.82 10^6/uL (4.00-5.40); WHITE BLOOD COUNT 6.6 10^3/uL (4.0-10.0)
[2021-12-08 16:28] LABS: ALBUMIN 4.1 GM/DL (3.2-5.2); ALT/SGPT 24 U/L (12-78); BILIRUBIN,TOTAL 0.8 MG/DL (0.2-1.0); BLOOD UREA NITROGEN 15 MG/DL (7-18); CARBON DIOXIDE LEVEL 26 MEQ/L (21-32); CHLORIDE LEVEL 106 MEQ/L (98-107); CHOLESTEROL LEVEL 204 MG/DL (<200); CHOLESTEROL RISK RATIO 2.794 (<5); CREATININE FOR GFR 0.62 MG/DL (0.55-1.30); GLOMERULAR FILTRATION RATE > 60.0 (>58); GLUCOSE, FASTING 86 MG/DL (70-100); HDL CHOLESTEROL 73 MG/DL (>40); LDL CHOLESTEROL 121 MG/DL (<100); NON-HDL-C 131 MG/DL; POTASSIUM SERUM 4.2 MEQ/L (3.5-5.1); SODIUM LEVEL 139 MEQ/L (136-145); TOTAL PROTEIN 7.1 GM/DL (6.4-8.2); TRIGLYCERIDES LEVEL 51 MG/DL (<150)
[2021-12-08 16:29] LABS: HEMOGLOBIN A1c 5.3 %
== END ==
LOC: M WUC 12:03
PROVIDERS: ATTEND Student in an Organized Health Care Education/Training Program
DX: Z13.1 Encounter for screening for diabetes mellitus (principal); I10 Essential (primary) hypertension; Z00.00 Encounter for general adult medical examination without abnormal findings

== ENCOUNTER → 2022-01-09 | Outpatient (CLI) | payer OTHER ==
[~2022-01-09] MED LIST changes: +OMEP-173 PO; -OMEP-218 PO
== END ==
LOC: M WHC 12:18
PROVIDERS: ATTEND Advanced Practice Midwife
DX: R10.32 Left lower quadrant pain (principal); N83.202 Unspecified ovarian cyst, left side

== ENCOUNTER → 2022-02-06 | Outpatient (CLI) | payer OTHER | LOC: M PLALAB 07:27 | PROVIDERS: ATTEND Advanced Practice Midwife | DX: N83.202 Unspecified ovarian cyst, left side (principal) ==

== ENCOUNTER → 2022-03-14 | Outpatient (CLI) | payer OTHER | LOC: M WHC 10:02 | PROVIDERS: ATTEND Advanced Practice Midwife | DX: N83.202 Unspecified ovarian cyst, left side (principal) ==

== ENCOUNTER → 2022-03-28 | Outpatient (CLI) | payer OTHER ==
[~2022-03-28] MED LIST changes: +GASTROGRAFIN SOLUTION 30ML (Q9963) As Ordered ONE; +ISOVUE-370 76% 100ML VIAL As Ordered ONE
[2022-03-28 16:30] LABS: BASO # 0.1 10^3/uL (0.0-0.2); BASO % 0.7 % (0.0-1.0); EOS # 0.1 10^3/uL (0.0-0.5); EOS % 1.6 % (0.0-3.0); HEMATOCRIT 43.9 % (36.0-47.0); HEMOGLOBIN 14.7 g/dl (12.0-15.5); LYMPH # 2.5 10^3/uL (1.5-5.0); LYMPH % 33.9 % (24.0-44.0); MEAN CORPUSCULAR HEMOGLOBIN 30.4 pg (27.0-33.0); MEAN CORPUSCULAR HGB CONC 33.5 g/dl (32.0-36.5); MEAN CORPUSCULAR VOLUME 90.9 fl (80.0-96.0); MONO # 0.9 10^3/uL (0.0-0.8); MONO % 11.6 % (2.0-8.0); NEUTROPHILS # 3.9 10^3/uL (1.5-8.5); NEUTROPHILS % 51.9 % (36.0-66.0); PLATELET COUNT, AUTOMATED 313 10^3/uL (150-450); RED BLOOD COUNT 4.83 10^6/uL (4.00-5.40); WHITE BLOOD COUNT 7.5 10^3/uL (4.0-10.0)
[2022-03-28 17:09] LABS: ALBUMIN 4.2 GM/DL (3.2-5.2); ALT/SGPT 21 U/L (12-78); BILIRUBIN,TOTAL 1.1 MG/DL (0.2-1.0); BLOOD UREA NITROGEN 16 MG/DL (7-18); CARBON DIOXIDE LEVEL 27 MEQ/L (21-32); CHLORIDE LEVEL 108 MEQ/L (98-107); CREATININE FOR GFR 0.82 MG/DL (0.55-1.30); GLOMERULAR FILTRATION RATE > 60.0 (>58); GLUCOSE, FASTING 83 MG/DL (70-100); POTASSIUM SERUM 4.5 MEQ/L (3.5-5.1); SODIUM LEVEL 139 MEQ/L (136-145); TOTAL PROTEIN 7.1 GM/DL (6.4-8.2)
== END ==
LOC: M RAD 15:30
PROVIDERS: ATTEND Student in an Organized Health Care Education/Training Program
DX: R10.32 Left lower quadrant pain (principal)
CPT/HCPCS: 36415; 74177; 80053; 85025; 86140; Q9963; Q9967

== ENCOUNTER → 2022-05-11 | Outpatient (CLI) | payer OTHER ==
[~2022-05-11] MED LIST changes: -GASTROGRAFIN SOLUTION 30ML (Q9963) As Ordered ONE; -ISOVUE-370 76% 100ML VIAL As Ordered ONE
== END ==
LOC: M LABSMTC 10:37
PROVIDERS: ATTEND Anesthesiology
DX: Z01.818 Encounter for other preprocedural examination (principal); Z11.52 Encounter for screening for COVID-19

== ENCOUNTER 2022-05-16 09:44 | Day surgery (SDC) | payer OTHER ==
[~2022-05-16] VITALS: Ht 160 cm; Wt 81.6 kg
[~2022-05-16 09:44] MED LIST changes: +NS 1,000 ML IV ONE
[2022-05-16] MEDS ORDERED: propofoL 200 MG/20 ML VIAL As Ordered ONE ×3 (11:04→11:17)
[2022-05-16 11:50] VITALS: BP 134/88
== END 2022-05-16 12:01 | disposition home or self-care (01) ==
LOC: M OPP 09:44
PROVIDERS: ATTEND Internal Medicine Gastroenterology
DX: Z12.11 Encounter for screening for malignant neoplasm of colon (principal); R10.32 Left lower quadrant pain; K57.30 Diverticulosis of large intestine without perforation or abscess without bleeding; K64.8 Other hemorrhoids; I71.9 Aortic aneurysm of unspecified site, without rupture; K21.9 Gastro-esophageal reflux disease without esophagitis; F41.9 Anxiety disorder, unspecified; F32.A Depression, unspecified; J30.9 Allergic rhinitis, unspecified; Z79.899 Other long term (current) drug therapy; Z81.1 Family history of alcohol abuse and dependence; Z83.6 Family history of other diseases of the respiratory system; Z83.3 Family history of diabetes mellitus; Z82.49 Family history of ischemic heart disease and other diseases of the circulatory system; Z84.1 Family history of disorders of kidney and ureter; Z82.3 Family history of stroke; Z80.3 Family history of malignant neoplasm of breast; Z80.0 Family history of malignant neoplasm of digestive organs

== ENCOUNTER → 2023-01-26 | Outpatient (CLI) | payer OTHER ==
[~2023-01-26] MED LIST changes: -NS 1,000 ML IV ONE
== END ==
LOC: M RAD 09:01
PROVIDERS: ATTEND Otolaryngology
DX: H90.A31 Mixed conductive and sensorineural hearing loss, unilateral, right ear with restricted hearing on the contralateral side (principal)

== ENCOUNTER → 2023-03-29 | Outpatient (CLI) | payer OTHER ==
[~2023-03-29] MED LIST changes: +FLUO40CA PO; +LEVOTAB10 PO; +VENTAER INH
== END ==
LOC: M SOG 08:54
PROVIDERS: ATTEND Physician Assistant
DX: M25.521 Pain in right elbow (principal)

== ENCOUNTER 2023-03-30 00:21 | Emergency (ER) | payer OTHER ==
[~2023-03-30] VITALS: Ht 167.6 cm; Wt 68.2 kg
[~2023-03-30 00:21] MED LIST changes: -FLUO40CA PO; -LEVOTAB10 PO; -VENTAER INH
[2023-03-30 01:03] LABS: HEMATOCRIT 45.3 % (36.0-47.0); HEMOGLOBIN 15.4 g/dl (12.0-15.5); MEAN CORPUSCULAR HEMOGLOBIN 31.6 pg (27.0-33.0); MEAN CORPUSCULAR VOLUME 92.8 fl (80.0-96.0); PLATELET COUNT, AUTOMATED 330 10^3/uL (150-450); RED BLOOD COUNT 4.88 10^6/uL (4.00-5.40); WHITE BLOOD COUNT 12.5 10^3/uL (4.0-10.0)
[2023-03-30 01:22] LABS: AMPHETAMINES LEVEL URINE NEGATIVE (NEGATIVE); BARBITURATES URINE NEGATIVE (NEGATIVE); BENZODIAZEPINES URINE NEGATIVE (NEGATIVE); COCAINE METABOLITE URINE NEGATIVE (NEGATIVE); METHADONE URINE NEGATIVE (NEGATIVE); OPIATES URINE NEGATIVE (NEGATIVE); PHENCYCLIDINE URINE NEGATIVE (NEGATIVE)
[2023-03-30 01:23] LABS: CANNABINOIDS URINE POSITIVE (NEGATIVE)
[2023-03-30 01:25] LABS: ACETAMINOPHEN LEVEL < 2.0 UG/ML (10.0-20.0); ALBUMIN 4.4 G/DL (3.2-5.2); ALKALINE PHOSPHATASE 71 U/L (46-116); ALT/SGPT 32 U/L (7.0-40); AST/SGOT 30 U/L (<34); BILIRUBIN,DIRECT 0.2 MG/DL (<0.4); BILIRUBIN,TOTAL 0.9 MG/DL (0.3-1.2); BLOOD UREA NITROGEN 7 MG/DL (9-23); CALCIUM LEVEL 9.8 MG/DL (8.5-10.1); CARBON DIOXIDE LEVEL 26 MMOL/L (20-31); CHLORIDE LEVEL 107 MMOL/L (98-107); CREATININE FOR GFR 0.62 MG/DL (0.55-1.30); GLOMERULAR FILTRATION RATE > 60.0 (>58); GLUCOSE, FASTING 113 MG/DL (60-100); POTASSIUM SERUM 3.7 MMOL/L (3.5-5.1); SALICYLATE LEVEL < 3.0 MG/DL (<30); SODIUM LEVEL 141 MMOL/L (136-145); TOTAL PROTEIN 7.5 G/DL (5.7-8.2)
[2023-03-30 01:30] LABS: HCG, SERUM QUALITATIVE NEGATIVE (NEGATIVE)
[2023-03-30 01:33] LABS: THYROID STIMULATING HORMONE 1.119 uIU/ML (0.55-4.78)
[2023-03-30] MEDS ORDERED: LEVOTAB10 PO (08:18)
[2023-03-30] MEDS ORDERED: VENTAER INH (08:18)
[2023-03-30] MEDS ORDERED: FLUO40CA PO (08:18)
[2023-03-30] MEDS ORDERED: HOME MED LIST COMPLETE! XX SCH (08:20)
[2023-03-30 12:23] VITALS: BP 135/70
== END 2023-03-30 12:27 | disposition home or self-care (01) ==
LOC: M ED 00:21
DX: F10.129 Alcohol abuse with intoxication, unspecified (principal); Z79.899 Other long term (current) drug therapy; Z79.51 Long term (current) use of inhaled steroids

== ENCOUNTER → 2023-04-13 | Outpatient (CLI) | payer OTHER ==
[~2023-04-13] MED LIST changes: +FLUO40CA PO; +LEVOTAB10 PO; +VENTAER INH
== END ==
LOC: M OUTALCOH 09:48
PROVIDERS: ATTEND Psychiatry & Neurology Psychiatry
DX: F10.10 Alcohol abuse, uncomplicated (principal)

== ENCOUNTER 2023-04-20 15:56 | Outpatient (RCR) | payer OTHER | END 2023-04-25 | LOC: M OUTALCOH 15:56 | PROVIDERS: ATTEND Psychiatry & Neurology Psychiatry | DX: F10.10 Alcohol abuse, uncomplicated (principal) ==

== ENCOUNTER → 2023-05-25 | Outpatient (RCR) | payer OTHER | LOC: M OUTALCOH 04-26 16:00 | PROVIDERS: ATTEND Psychiatry & Neurology Psychiatry | DX: F10.10 Alcohol abuse, uncomplicated (principal) ==

== ENCOUNTER 2023-06-22 14:00 | Outpatient (RCR) | payer OTHER | END 2023-06-25 | LOC: M OUTALCOH 14:00 | PROVIDERS: ATTEND Psychiatry & Neurology Psychiatry | DX: F10.10 Alcohol abuse, uncomplicated (principal) ==

== ENCOUNTER 2023-06-27 14:02 | Outpatient (RCR) | payer OTHER | END 2023-07-26 | LOC: M OUTALCOH 14:02 | PROVIDERS: ATTEND Psychiatry & Neurology Psychiatry | DX: F10.10 Alcohol abuse, uncomplicated (principal) ==

== ENCOUNTER → 2023-09-10 | Outpatient (CLI) | payer OTHER | LOC: M WHC 07:10 | PROVIDERS: ATTEND Obstetrics & Gynecology | DX: Z12.31 Encounter for screening mammogram for malignant neoplasm of breast (principal) ==

== ENCOUNTER → 2023-12-06 | Outpatient (CLI) | payer OTHER ==
[2023-12-06 11:46] LABS: BASO # 0.1 10^3/uL (0.0-0.2); BASO % 0.6 % (0.0-1.0); EOS # 0.1 10^3/uL (0.0-0.5); EOS % 0.9 % (0.0-3.0); HEMATOCRIT 43.1 % (36.0-47.0); HEMOGLOBIN 14.6 g/dl (12.0-15.5); LYMPH % 24.8 % (24.0-44.0); MEAN CORPUSCULAR HGB CONC 33.9 g/dl (32.0-36.5); MEAN CORPUSCULAR VOLUME 91.5 fl (80.0-96.0); MONO # 0.8 10^3/uL (0.0-0.8); MONO % 9.5 % (2.0-8.0); NEUTROPHILS # 5.1 10^3/uL (1.5-8.5); PLATELET COUNT, AUTOMATED 306 10^3/uL (150-450); RED BLOOD COUNT 4.71 10^6/uL (4.00-5.40)
[2023-12-06 12:16] LABS: ALBUMIN 3.9 G/DL (3.2-5.2); ALKALINE PHOSPHATASE 61 U/L (46-116); ALT/SGPT 21 U/L (7.0-40); AST/SGOT 19 U/L (<34); BILIRUBIN,TOTAL 0.8 MG/DL (0.3-1.2); BLOOD UREA NITROGEN 9 MG/DL (9-23); CALCIUM LEVEL 9.9 MG/DL (8.5-10.1); CARBON DIOXIDE LEVEL 26 MMOL/L (20-31); CHLORIDE LEVEL 104 MMOL/L (98-107); CHOLESTEROL LEVEL 194 MG/DL (<200); GLOMERULAR FILTRATION RATE > 60.0 (>58); GLUCOSE, FASTING 74 MG/DL (60-100); HDL CHOLESTEROL 84.3 MG/DL (>40); LDL CHOLESTEROL 99.7 MG/DL (<100); NON-HDL-C 109.7 MG/DL; POTASSIUM SERUM 4.2 MMOL/L (3.5-5.1); SODIUM LEVEL 136 MMOL/L (136-145); TOTAL PROTEIN 6.6 G/DL (5.7-8.2); TRIGLYCERIDES LEVEL 50 MG/DL (<150)
[2023-12-06 12:17] LABS: THYROID STIMULATING HORMONE 0.992 uIU/ML (0.55-4.78)
[2023-12-06 12:18] LABS: FOLATE 19.23 NG/ML (>5.4); TOTAL 25(OH) VITAMIN D 32.3 NG/ML (20.0-100.0)
[2023-12-06 12:19] LABS: VITAMIN B12 LEVEL 967 PG/ML (211-911)
== END ==
LOC: M RAD 09:53
PROVIDERS: ATTEND Physician Assistant
DX: F41.9 Anxiety disorder, unspecified (principal)

== ENCOUNTER → 2024-12-30 | Outpatient (CLI) | payer OTHER | LOC: M WHC 10:22 | PROVIDERS: ATTEND Obstetrics & Gynecology | DX: Z12.31 Encounter for screening mammogram for malignant neoplasm of breast (principal); N63.21 Unspecified lump in the left breast, upper outer quadrant ==

== ENCOUNTER → 2025-01-20 | Outpatient (CLI) | payer OTHER | LOC: M WHC 12:16 | PROVIDERS: ATTEND Obstetrics & Gynecology | DX: Z12.31 Encounter for screening mammogram for malignant neoplasm of breast (principal) ==

== ENCOUNTER → 2025-01-29 | Outpatient (CLI) | payer OTHER ==
[2025-01-29 07:40] VITALS: TEMP 98.2
[2025-01-29 08:33] VITALS: BP 128/86; O2SAT 98
== END ==
LOC: M WHCPRO 07:36
PROVIDERS: ATTEND Obstetrics & Gynecology
DX: R92.8 Other abnormal and inconclusive findings on diagnostic imaging of breast (principal); N63.22 Unspecified lump in the left breast, upper inner quadrant; C50.212 Malignant neoplasm of upper-inner quadrant of left female breast

== ENCOUNTER → 2025-02-20 | Outpatient (CLI) | payer OTHER ==
[~2025-02-20] MED LIST changes: +PROHANCE 279.3MG/ML 15ML VIAL ONE; +PROHANCE 279.3MG/ML 5ML VIAL ONE
== END ==
LOC: M PLAIMG 13:51
PROVIDERS: ATTEND Surgery
DX: C50.212 Malignant neoplasm of upper-inner quadrant of left female breast (principal)

== ENCOUNTER → 2025-03-12 | Outpatient (CLI) | payer OTHER ==
[~2025-03-12] MED LIST changes: +CYCL5TAB4 PO; +FLUO60TA PO; -PROHANCE 279.3MG/ML 15ML VIAL ONE; -PROHANCE 279.3MG/ML 5ML VIAL ONE
[2025-03-12 13:25] LABS: BASO % 0.4 % (0.0-1.0); EOS # 0.1 10^3/uL (0.0-0.5); EOS % 1.9 % (0.0-3.0); HEMATOCRIT 44.5 % (36.0-47.0); LYMPH # 2.1 10^3/uL (1.5-5.0); LYMPH % 28.3 % (24.0-44.0); MEAN CORPUSCULAR HEMOGLOBIN 30.7 pg (27.0-33.0); MEAN CORPUSCULAR HGB CONC 33.7 g/dl (32.0-36.5); MEAN CORPUSCULAR VOLUME 91.2 fl (80.0-96.0); MONO # 0.7 10^3/uL (0.0-0.8); MONO % 8.8 % (2.0-8.0); NEUTROPHILS # 4.5 10^3/uL (1.5-8.5); NEUTROPHILS % 60.5 % (36.0-66.0); PLATELET COUNT, AUTOMATED 277 10^3/uL (150-450); RED BLOOD COUNT 4.88 10^6/uL (4.00-5.40); WHITE BLOOD COUNT 7.4 10^3/uL (4.0-10.0)
[2025-03-12 13:49] LABS: ALBUMIN 4.1 G/DL (3.2-5.2); ALKALINE PHOSPHATASE 68 U/L (35-104); ALT/SGPT 24 U/L (7.0-40); AST/SGOT 22 U/L (<34); BILIRUBIN,TOTAL 1.3 MG/DL (0.3-1.2); BLOOD UREA NITROGEN 13 MG/DL (9-23); CARBON DIOXIDE LEVEL 27 MMOL/L (20-31); CHLORIDE LEVEL 105 MMOL/L (98-107); CREATININE FOR GFR 0.67 MG/DL (0.55-1.30); GLOMERULAR FILTRATION RATE > 90.0 (>51); GLUCOSE, FASTING 104 MG/DL (60-100); POTASSIUM SERUM 3.6 MMOL/L (3.5-5.1); SODIUM LEVEL 137 MMOL/L (136-145); TOTAL PROTEIN 7.4 G/DL (5.7-8.2)
== END ==
LOC: M RAD 12:41
PROVIDERS: ATTEND Family Medicine
DX: R19.7 Diarrhea, unspecified (principal); K57.92 Diverticulitis of intestine, part unspecified, without perforation or abscess without bleeding; R10.30 Lower abdominal pain, unspecified

== ENCOUNTER → 2025-03-12 | Outpatient (REF) | payer OTHER | LOC: M SFHCLERA 12:39 | PROVIDERS: ATTEND Family Medicine | DX: R19.7 Diarrhea, unspecified (principal) ==

== ENCOUNTER 2025-03-26 08:26 | Day surgery (SDC) | payer OTHER ==
[2025-03-25] MEDS: ceFAZolin SOD 2 GM IV ONCE IV ONE (06:00)
[~2025-03-26] VITALS: Ht 160 cm; Wt 81.6 kg
[~2025-03-26 08:26] MED LIST changes: +LIDOCAINE 1% MDV 20ML VIAL As Ordered ONE
[2025-03-26] MEDS ORDERED: GLYCOPYRROLATE INJ 0.2 MG/ML 2 ML VIAL As Ordered ONE (11:27)
[2025-03-26] MEDS ORDERED: LIDOCAINE 2% 100MG/5ML SDV (FOR ANES.) As Ordered ONE (11:27)
[2025-03-26] MEDS ORDERED: propofoL 200 MG/20 ML VIAL As Ordered ONE (11:27)
[2025-03-26] MEDS ORDERED: KETOROLAC 30 MG/ML 1ML VIAL As Ordered ONE (11:28)
[2025-03-26] MEDS ORDERED: ONDANSETRON 4MG 2ML VIAL As Ordered ONE (11:28)
[2025-03-26] MEDS ORDERED: fentaNYL 100 MCG/2 ML INJECTION As Ordered ONE (11:29)
[2025-03-26] MEDS ORDERED: MIDAZOLAM INJ 2MG/2ML VIAL As Ordered ONE (11:29)
[2025-03-26] MEDS: METHYLENE BLUE 0.5% (5MG/ML) 10 ML AMP As Ordered ONE (12:21)
[2025-03-26] MEDS ORDERED: LR 1,000 ML IV SCH (12:25)
[2025-03-26] MEDS: SCOPOLAMINE 1MG TRANSDERMAL PATCH TOP ONE (12:28)
[2025-03-26] MEDS ORDERED: ACETAMINOPHEN 1000MG/100ML IV BAG As Ordered ONE (12:56)
[2025-03-26] MEDS ORDERED: METOCLOPRAMIDE INJ 10MG/2ML VIAL As Ordered ONE (12:58)
[2025-03-26] MEDS ORDERED: ePHEDrine SULFATE 25 MG/5 ML(5MG/ML) SYRINGE As Ordered ONE (13:03)
[2025-03-26] MEDS ORDERED: HYDROmorphone HCL 2MG/ML 1ML VIAL As Ordered ONE (13:33)
[2025-03-26] MEDS ORDERED: MORPHINE 2 MG/ML 1ML VIAL IV PRN (14:30)
[2025-03-26] MEDS ORDERED: oxyCODONE 5MG TAB PO PRN (14:30)
[2025-03-26] MEDS ORDERED: ONDANSETRON 4MG 2ML VIAL IV PRN (14:30)
[2025-03-26] MEDS ORDERED: fentaNYL 100 MCG/2 ML INJECTION IV PRN (14:30)
[2025-03-26] MEDS ORDERED: OXYC-517 PO ×2 (14:46→14:48)
[2025-03-26 16:47] VITALS: BP 123/72; TEMP 97.5; O2SAT 96
== END 2025-03-26 16:52 | disposition home or self-care (01) ==
LOC: M SDC 08:26
PROVIDERS: ATTEND Surgery
DX: D05.12 Intraductal carcinoma in situ of left breast (principal); Z17.0 Estrogen receptor positive status [ER+]; Z17.21 Progesterone receptor positive status; Z17.32 Human epidermal growth factor receptor 2 negative status; R06.02 Shortness of breath; Z79.899 Other long term (current) drug therapy
CPT/HCPCS: 19301; 38525; 38900; 76098; 76942; 81025; 88305; 88307; A9520; J0131; J0665; J0690; J1100; J1171; J1596; J1885; J2250; J2405; J2765; J3010

== ENCOUNTER → 2025-05-25 | Outpatient (RCR) | payer OTHER ==
[~2025-05-25] MED LIST changes: +CLOB5CR TOP; -LIDOCAINE 1% MDV 20ML VIAL As Ordered ONE; +OXYC-517 PO; +TAMO20TA8 PO
== END ==
LOC: M ONCR 04-30 08:00
PROVIDERS: ATTEND General Practice
DX: Z51.0 Encounter for antineoplastic radiation therapy (principal); C50.212 Malignant neoplasm of upper-inner quadrant of left female breast

== ENCOUNTER 2025-06-03 08:15 | Outpatient (RCR) | payer OTHER ==
[~2025-06-03 08:15] MED LIST changes: -PROZ20CA11 PO; +PROZ20CA12 PO
== END 2025-06-25 ==
LOC: M ONCR 08:15
PROVIDERS: ATTEND General Practice
DX: Z51.0 Encounter for antineoplastic radiation therapy (principal); C50.212 Malignant neoplasm of upper-inner quadrant of left female breast

== ENCOUNTER → 2025-11-09 | Outpatient (CLI) | payer OTHER ==
[~2025-11-09] MED LIST changes: +PROHANCE 279.3MG/ML 15ML VIAL ONE; +PROHANCE 279.3MG/ML 5ML VIAL ONE; -PROZ20CA12 PO; +PROZ20CA25 PO
== END ==
LOC: M PLAIMG 13:19
DX: R51.9 Headache, unspecified (principal); Z85.3 Personal history of malignant neoplasm of breast
CPT/HCPCS: 70553; A9579